=== PATIENT | female | born 1950 | race Caucasian/White ===

== ENCOUNTER 2017-11-22 10:27 | Day surgery (SDC) | payer OTHER ==
[2017-11-01 11:34] VITALS: Ht 153.7 cm; Wt 92.6 kg
--- NOTE | 2017-11-01 12:05 | PAT Medication Instructions ---
Service Date Nov 01, 2017. Current Home Medication List Ibuprofen Tab (Advil), 600 MG PO BID Lansoprazole (Prevacid), 40 MG PO QAM Levothyroxine Sodium (Levothyroxine Sodium), 1 TAB PO QAM Lorazepam (Ativan), 0.5 MG PO HS PRN for RN Mirabegron (Myrbetriq Er), 25 MG PO QAM Multivitamin (Multivitamin), 2 TAB PO QAM [Benicar], 1 TAB PO QAM [Magnesium], 2 TAB PO QPM Medication Instructions For Your Scheduled Surgery - Check with surgeon for instructions: Ibuprofen Tab (Advil), 600 MG PO BID - Hold the following medications the morning of surgery: [Benicar], 1 TAB PO QAM Mirabegron (Myrbetriq Er), 25 MG PO QAM Multivitamin (Multivitamin), 2 TAB PO QAM - Take the following medications the morning of surgery with a sip of water: Lansoprazole (Prevacid), 40 MG PO QAM Levothyroxine Sodium (Levothyroxine Sodium), 1 TAB PO QAM Lorazepam (Ativan), 0.5 MG PO HS PRN for RN (if needed) - Take the following medications as scheduled the night before surgery: [Magnesium], 2 TAB PO QPM Lorazepam (Ativan), 0.5 MG PO HS PRN for RN (if needed) If you have any questions please call us at [phone] or [phone] or [phone]
--- NOTE | 2017-11-01 12:52 | DIAGNOSTIC IMAGING REPORT ---
CHEST 2 VIEWS ROUTINE HISTORY: 67 years-old Female PAT preoperative exam. No acute chest complaints. COMPARISON: Chest radiographs 07/04/2016 TECHNIQUE: PA and lateral views of the chest FINDINGS: The cardiomediastinal and hilar silhouettes are within normal limits. Atherosclerosis of the aorta. No pneumothorax, pleural effusion, focal airspace consolidation or overt pulmonary edema. Degenerative changes are seen within the shoulders and spine. Sigmoidal scoliosis of the lumbar spine with partially imaged posterior fusion hardware of the lumbar spine. Surgical clips of the right upper quadrant suggest prior cholecystectomy. IMPRESSION: No acute process. The above report was generated using voice recognition software. It may contain grammatical, syntax or spelling errors. Electronically signed by: Sae Alcaraz M.D. 11/01/2017 12:51 PM Dictated Date/Time: 11/01/2017 12:49 PM
[~2017-11-22] VITALS: Ht 153.7 cm; Wt 92.6 kg
--- NOTE | 2017-11-22 07:06 | History and Physical ---
History & Physical Date Nov 22, 2017. Chief Complaint Patient presents a 67-year-old white female who complains of ongoing pain about the right knee with a tear of the right medial retinaculum after having had a partial fall on a flexed knee she presents with a palpable defect of the weakness of full extension. History of Present Illness The patient is a 67 year old female with complaints of a palpable defect in the region of the medial retinaculum after having had a fall sustaining a partial tear of her medial retinaculum quadriceps tendon she has a weakness and inability to fully extend her knee without pain or difficulty with steps and a palpable defect involving her medial retinaculum she had a total knee arthroplasty in 2010 is a recent new injury Additional History Hepatic Disease: No Endocrine Disorder: Yes Kidney Disease: No Hypertension: Yes Heart Disease: No Bleeding Tendencies: No Infectious Diseases: No Allergies Coded Allergies: Cyclobenzaprine (Verified Adverse Reaction, Unknown, ELEVATED ANXIETY , INSOMNIA, 11/01/17) Oxycodone (Verified Adverse Reaction, Unknown, "severely depressed", ) Home Medications Scheduled Ibuprofen Tab (Advil), 600 MG PO BID Lansoprazole (Prevacid), 40 MG PO QAM Levothyroxine Sodium (Levothyroxine Sodium), 1 TAB PO QAM Mirabegron (Myrbetriq Er), 25 MG PO QAM Multivitamin (Multivitamin), 2 TAB PO QAM Valsartan/Hctz (Diovan Hct 160MG/25MG), 1 TAB PO QAM [Magnesium], 2 TAB PO QPM Scheduled PRN Lorazepam (Ativan), 0.5 MG PO HS PRN for RN Physical Examination Skin: warm/dry, no rash Eyes: normal inspection, EOMI, sclerae normal ENT: normal ENT inspection, pharynx normal Head: normocephalic, atraumatic Neck: supple, no adenopathy, trachea midline Respiratory/Chest: lungs clear, normal breath sounds, no respiratory distress Cardiovascular: regular rate, rhythm, no edema, no murmur Abdomen / GI: normal bowel sounds, non tender Back: normal inspection Extremities: normal inspection, normal range of motion Neurologic/Psych: no motor/sensory deficits, alert, normal reflexes, oriented x 3 Addiitonal Comments: Patient presents a 67-year-old white female with complaints of ongoing pain with difficulty full extension of palpable defect involving the region of the superior medial aspect of the medial retinaculum patient presents for medial retinacular repair Diagnosis 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
[~2017-11-22 10:27] MED LIST: IBUP-103 PO; LACTATED RINGER'S 1000ML 1,000 ML IV SCH; LANS30CA12 PO; LEVO100T7 PO; LORA-741 PO; MAGNESIUM PO; MULT-506 PO; MYR25 PO; VALS160T60 PO
[2017-11-22 10:55] VITALS: BP 164/108; PULSE 72; TEMP 36.8; O2SAT 100
--- NOTE | 2017-11-22 12:06 | History & Physical Bridge Note ---
H&P Re-Evaluation Bridge Note: I have examined the patient, reviewed the History & Physical and in the interval since the performance of the History & Physical I have noted the following changes of clinical significance: No changes noted patient scheduled for repair of a VMO retinaculum and possible Poly change please note a possible poly changes been added to the consent
--- NOTE | 2017-11-22 12:09 | History and Physical ---
History & Physical Date Nov 22, 2017. Chief Complaint Patient presents a 67-year-old white female for VMO retinacular repair possible poly-change right total knee arthroplasty History of Present Illness The patient is a 67 year old female with complaints of weak and painful VMO is status post tear VMO retinaculum right total knee plan is for VMO repair possible poly-change pending examination at time of surgery Additional History Hepatic Disease: No Endocrine Disorder: No Kidney Disease: No Hypertension: No Heart Disease: No Bleeding Tendencies: No Infectious Diseases: No Allergies Coded Allergies: Cyclobenzaprine (Verified Adverse Reaction, Unknown, ELEVATED ANXIETY , INSOMNIA, 11/22/17) Oxycodone (Verified Adverse Reaction, Unknown, "severely depressed", ) Home Medications Scheduled Ibuprofen Tab (Advil), 600 MG PO BID Lansoprazole (Prevacid), 40 MG PO QAM Levothyroxine Sodium (Levothyroxine Sodium), 1 TAB PO QAM Mirabegron (Myrbetriq Er), 25 MG PO QAM Multivitamin (Multivitamin), 2 TAB PO QAM Valsartan/Hctz (Diovan Hct 160MG/25MG), 1 TAB PO QAM [Magnesium], 2 TAB PO QPM Scheduled PRN Lorazepam (Ativan), 0.5 MG PO HS PRN for RN Physical Examination Skin: warm/dry, no rash Eyes: normal inspection, EOMI, sclerae normal ENT: normal ENT inspection, pharynx normal Head: normocephalic, atraumatic Neck: supple, no adenopathy, trachea midline Respiratory/Chest: lungs clear, normal breath sounds, no respiratory distress Cardiovascular: regular rate, rhythm, no edema, no murmur Abdomen / GI: normal bowel sounds, non tender Back: normal inspection Extremities: normal inspection, normal range of motion Neurologic/Psych: no motor/sensory deficits, alert, normal reflexes, oriented x 3 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
[2017-11-22] MEDS ORDERED: BUPIVACAINE 0.25% 30 ML VIAL ONE (12:11)
[2017-11-22] MEDS ORDERED: BACITRACIN 50000 UNIT VIAL ONE (12:35)
[2017-11-22] MEDS ORDERED: POVIDONE-IODINE OP SOLN 30 ML BTL ONE (12:35)
[2017-11-22] MEDS ORDERED: MIDAZOLAM HCL 1 MG/ML 2ML VIAL ONE (12:35)
[2017-11-22] MEDS ORDERED: DEXAMETHASONE SOD INJ 4 MG/ML VIAL ONE (12:35)
[2017-11-22] MEDS ORDERED: FENTANYL CITRATE INJ 50 MCG/1 ML 2 ML VIAL ONE (12:36)
[2017-11-22] MEDS ORDERED: ONDANSETRON INJ 2 MG/ML 2 ML VIAL ONE (12:36)
[2017-11-22] MEDS ORDERED: PROPOFOL IV EMULSION 10 MG/ML 20 ML VIAL IV ONE ×2 (12:36→13:38)
[2017-11-22] MEDS ORDERED: LIDOCAINE HCL 2% 2 ML VIAL (20MG/ML) ONE (12:36)
[2017-11-22] MEDS ORDERED: ONDANSETRON INJ 2 MG/ML 2 ML VIAL IV PRN ×3 (13:00→14:15)
[2017-11-22] MEDS ORDERED: ATROPINE SULFATE 0.1 MG/ML 5ML SYR IV PRN (13:00)
[2017-11-22] MEDS ORDERED: LABETALOL HCL IV 5 MG/ML 20ML IV PRN (13:00)
[2017-11-22] MEDS ORDERED: KETOROLAC TROMETHAMINE 15 MG/ML VIAL IV. PRN ×2 (13:00→14:30)
[2017-11-22] MEDS ORDERED: SODIUM CHLORIDE 0.9% INJ 10 ML VIAL ONE (13:18)
[2017-11-22] MEDS ORDERED: CEFAZOLIN SOD 1 GM VIAL ONE (13:18)
--- NOTE | 2017-11-22 13:32 | [facility] Post Operative Brief Note ---
Immediate Operative Summary Operative Date Nov 22, 2017. Pre-Operative Diagnosis Tear medial retinaculum right knee with mild ligamentous laxity Post-Operative Diagnosis Tear medial retinacular right knee with mild ligamentous laxity Procedure(s) Performed Open Poly changed to size 12 x 3 4 journey to total knee arthroplasty open repair and revision of VMO retinacular tear Surgeon Cristi Reading Interventionist Surgeon(s) Eliazar Estimated Blood Loss 5 cc Findings Consistent with Post-Op Diagnosis Specimens None Drains None Anesthesia Type General Regional Complication(s) none Disposition Disposition: Recovery Room / PACU
--- NOTE | 2017-11-22 13:35 | [facility] Operative Report ---
Operative Report Operative Date Nov 22, 2017. Pre-Operative Diagnosis Tear medial retinaculum right knee with mild ligamentous laxity Post-Operative Diagnosis Tear medial retinacular right knee with mild ligamentous laxity Procedure(s) Performed Open Poly changed to size 12 x 3 4 journey to total knee arthroplasty open repair and revision of VMO retinacular tear Surgeon Cristi Saloon Keeper Surgeon(s) Eliazar Estimated Blood Loss 5 cc Findings Patient presents with palpable defect in her VMO retinacular repair she had Patient presents with palpable defect in her VMO retinacular area with a late onset tear patient is a total knee arthroplasty from 2010 is been asymptomatic until recently when she had a fall follow-up palpable defect there she also some mild ligamentous laxity and for this reason a plan Nelly change was also planned Specimens None Drains None Anesthesia Type General Regional Complication(s) none Disposition Recovery Room / PACU Indications Patient presents with ongoing weakness with full a full extension and inability to do steps with a palpable defect or medial retinacular repair from previous total knee arthroplasty she relates it being more recent onset of continuous progression and weakness that has not responded to physical therapy bracing and anti-inflammatories presents for VMO repair Description of Procedure After proper prepping draping the right lower extremity incision was made through the proximal portion of the previous total knee incision dissection carried down to subcu tissue palpable defect was visualized the retinaculum was opened a portion of the attenuated and elongated scar tissue in the region of the previous repair was excised and the VMO was advanced such that a repair could be performed the polyp was also evaluated to be evidence of mild medial lateral collateral ligament laxity for this reason follows up sized to a size 12 x 3 for the wound was irrigated with muscle terracing incision the VMO retinaculum was repaired utilizing #2 FiberWire and #1 Vicryl subcu was closed with 3-0 Vicryl skin was closed with running subcu suture patient talks as well as taken recovery in stable condition with a knee immobilizer Jose MELENDREZ was necessary for prepping draping retraction closure of the fascia subcu and skin was necessary for the case I attest to the content of the Intraoperative Record and any orders documented therein. Any exceptions are noted below.
[2017-11-22] MEDS ORDERED: KETOROLAC TROMETHAMINE 30 MG/ML VIAL ONE (14:03)
[2017-11-22] MEDS ORDERED: HYDROmorphone INJ 0.5 MG/0.5 ML SYR ONE (14:05)
[2017-11-22] MEDS ORDERED: SODIUM CHLORIDE 0.9% 1000ML 1,000 ML IV SCH (14:07)
--- NOTE | 2017-11-22 14:11 | Discharge Instructions ---
Discharge Instructions Date of Service Nov 22, 2017. Admission Reason for Admission: Right Knee Retinacular Repair Discharge Discharge Diagnosis / Problem: right knee quad repair and poly exchange Discharge Goals Goal(s): Decrease discomfort, Improve function, Increase independence Activity Recommendations Activity Limitations: as noted below Weightbearing Status: Right weightbearing (as tolerated) Instructions / Follow-Up Instructions / Follow-Up ACTIVITY RECOMMENDATIONS: SELF CARE INSTRUCTIONS AFTER TOTAL KNEE REPLACEMENT A. You may need to continue a physical therapy program after discharge from the hospital. There are several options available to you. Your doctor will assist you in selecting the best one for you. 1. An out-patient facility 2 to 3 times a week for therapy or home therapy. 2. Continue working on all exercises taught to you in the hospital. Your goals should be to increase bending of your knee to 90 degrees and beyond and to fully straighten your knee. B. You may progress at your own pace from walking with a walker or crutches to a cane; then to no assistive devices. C. Make walking a part of your daily routine. Be up as much as comfortable with rest periods throughout the day. Rest with leg elevation is very important. Use the ice wrap frequently for the first 3-4 weeks. D. There are no restrictions on activities. You may ride in a car, shop, participate in metal bumper and all social activities. E. Wear the long elastic stockings (BELLO hose) 20 hours a day for 2 weeks after surgery. They can be removed several times a day for laundering and for a bath. F. You may shower, no tub baths until cleared by your doctor. SPECIAL CARE INSTRUCTIONS: VERY IMPORTANT TO READ AND REVIEW A. There are a few signs you need to watch for after you are home. Call [facility] [place] if you notice any of the followin. Increased severe knee pain. Some pain is expected especially when you exercise. 2. Increased swelling in your leg or knee; pain or swelling of the calf muscle in either lower leg. 3. Any fluid drainage from the incision. 4. Shortness of breath or chest pain. B. Please call [facility] at if you have any concerns or questions about your operation or recovery. The doctor or his nurse will return your call promptly. C. You must take antibiotics before dental work, bladder, bowel or other surgery. Your doctor will provide you with a permanent care to carry describing this precaution. IMPORTANT: * REMEMBER TO TAKE ASPIRIN, 81 MG, TWICE DAILY FOR 4 WEEKS UNLESS OTHERWISE DIRECTED. THIS IS YOUR BLOOD THINNER. * HIGH RISK PATIENTS MAY BE PRESCRIBED A STRONGER BLOOD THINNER. THIS WILL BE PROVIDED AT DISCHARGE. * CALL IF INCREASED PAIN, REDNESS, DRAINAGE OR FEVER GREATER THAT 101. * WEAR BELLO HOSE 20 HOURS PER DAY FOR 2 WEEKS. * YOU MAY HAVE A LARGE BAND-AID LIKE DRESSING (SILVERON). THIS WILL REMAIN ON YOUR INCISION FOR 7 DAYS, THEN CAN BE REMOVED. IF INCISION IS LEAKING THROUGH DRESSING, CALL THE OFFICE . FOLLOW UP VISIT: If appointment is not already scheduled: Please call [facility] to make a follow-up appointment for 2 weeks after your surgery at . . Current Hospital Diet Patient's current hospital diet: Discharge Diet Recommended Diet: Regular Diet Procedures Procedures Performed: Open Poly changed to size 12 x 3 4 journey to total knee arthroplasty open repair and revision of VMO retinacular tear Pending Studies Studies pending at discharge: no Medical Emergencies . Who to Call and When: Medical Emergencies: If at any time you feel your situation is an emergency, please call 911 immediately. . Non-Emergent Contact Non-Emergency issues call your: Primary Care Provider, Surgeon . "Provider Documentation" section prepared by Jose Perea. . [place] Drug Monitoring Program Search Results: patient reviewed within database, no issues identified
[2017-11-22] MEDS ORDERED: HYDROCODONE/ACETAMIN 5/325MG TAB PO PRN (14:15)
[2017-11-22] MEDS ORDERED: ASPEC81 PEG (14:15)
[2017-11-22] MEDS ORDERED: HYDR-5688 PO (14:15)
[2017-11-22] MEDS ORDERED: TRAM-10 PO (14:23)
[2017-11-22] MEDS: HYDROmorphone INJ 2 MG/ML SYR/VIAL IV PRN ×2 (14:40→14:45)
--- NOTE | 2017-11-22 15:01 | DIAGNOSTIC IMAGING REPORT ---
R KNEE 1 OR 2 VIEWS ROUTINE CLINICAL HISTORY: Postoperative evaluation. COMPARISON: None FINDINGS: Alignment of the right knee arthroplasty is anatomic. There is no fracture or unexpected radiopaque foreign bodies. Skin pratik are present. Hardware is intact. IMPRESSION: Status post total right knee arthroplasty. Hardware intact. No periprosthetic fracture or unexpected radiopaque foreign body. Electronically signed by: Doron Orozco M.D. 11/22/2017 3:00 PM Dictated Date/Time: 11/22/2017 2:59 PM
[2017-11-22 15:05] VITALS: BP 156/80; PULSE 49; TEMP 36.6; O2SAT 100
--- NOTE | 2017-11-22 15:24 | Anesthesiology Progress Note ---
Anesthesia Post Op Note Date & Time Nov 22, 2017 at 15:24 Vital Signs Pain Intensity: 1 Vital Signs Past 12 Hours Date Time Temp Pulse Resp B/P (MAP) Pulse Ox O2 Delivery O2 Flow Rate FiO2 11/22/17 15:05 36.6 49 18 156/80 100 Room Air 11/22/17 14:58 57 14 100 11/22/17 14:58 55 14 11/22/17 14:56 154/96 11/22/17 14:53 55 24 11/22/17 14:53 58 24 100 11/22/17 14:51 142/78 11/22/17 14:48 51 16 11/22/17 14:48 53 16 99 11/22/17 14:46 145/94 11/22/17 14:43 49 10 11/22/17 14:43 49 10 98 11/22/17 14:42 142/86 11/22/17 14:38 55 14 11/22/17 14:38 55 14 98 11/22/17 14:37 36.5 57 21 142/86 (113) 98 Room Air 11/22/17 14:36 162/89 11/22/17 14:33 61 14 98 11/22/17 14:33 62 14 11/22/17 14:32 146/68 11/22/17 14:28 56 20 11/22/17 14:28 57 20 99 11/22/17 14:27 149/79 11/22/17 14:25 60 15 96 11/22/17 14:25 59 15 11/22/17 14:21 154/76 11/22/17 14:20 59 12 11/22/17 14:20 61 12 99 11/22/17 14:16 158/79 11/22/17 14:15 55 13 99 11/22/17 14:15 55 13 11/22/17 14:14 145/93 11/22/17 14:10 55 14 100 11/22/17 14:10 55 14 11/22/17 14:07 91/82 11/22/17 14:05 63 14 100 11/22/17 14:05 63 14 11/22/17 14:01 149/90 11/22/17 14:00 63 19 11/22/17 14:00 63 19 100 11/22/17 13:56 148/83 11/22/17 13:55 71 15 99 11/22/17 13:55 36.2 74 16 148/83 (112) 100 Oxymask 10 11/22/17 13:55 71 15 11/22/17 10:55 36.8 72 20 164/108 (126) 100 Room Air Notes Mental Status: alert / awake / arousable, participated in evaluation Pt Amnestic to Procedure: Yes Nausea / Vomiting: adequately controlled Pain: adequately controlled Airway Patency, RR, SpO2: stable & adequate BP & HR: stable & adequate Hydration State: stable & adequate Anesthetic Complications: no major complications apparent
[2017-11-22 15:35] VITALS: BP 169/83; PULSE 54; O2SAT 100
[2017-11-22 16:04] VITALS: BP 127/68; PULSE 60; TEMP 36.7; O2SAT 100
== END 2017-11-22 16:25 | disposition home or self-care (01) ==
LOC: C.ACU 10:27
PROVIDERS: ATTEND Orthopaedic Surgery
DX: S86.812A Strain of other muscle(s) and tendon(s) at lower leg level, left leg, initial encounter (principal); M23.91 Unspecified internal derangement of right knee; X58.XXXA Exposure to other specified factors, initial encounter; Z88.5 Allergy status to narcotic agent; Z88.8 Allergy status to other drugs, medicaments and biological substances